=== PATIENT | female | born 1945 | race Caucasian/White ===

== ENCOUNTER 2019-04-25 19:10 | Emergency (ER) | payer MEDICARE, BC ==
[2019-04-25 19:17] VITALS: BMI 25.7
[2019-04-25] MEDS ORDERED: CARDURA1 MG (19:18)
[2019-04-25] MEDS ORDERED: NIACIN250 M1 PO (19:19)
[2019-04-25] MEDS ORDERED: CITRACAL + D E1 EACH PO (19:19)
[2019-04-25] MEDS ORDERED: FOLIC ACID1 MG PO (19:19)
[2019-04-25] MEDS ORDERED: KRILL OIL 1,001 EAC1 (19:19)
[2019-04-25] MEDS ORDERED: BAYER CHEWABLE81 MG PO (19:19)
[2019-04-25] MEDS ORDERED: VITAMIN D10000 UNI1 PO (19:20)
[2019-04-25 21:18] LABS: BASOPHILS 0.1 % (0-2); EOSINOPHILS 0.8 % (0-7); HEMATOCRIT 30.9 % (36.0-48.0); HEMOGLOBIN 10.6 g/dL (12-16); IMMATURE GRANULOCYTES 0.3 % (0-5); LYMPHOCYTES 8.1 % (15-50); MCH 32.4 pg (26.0-34.0); MCHC 34.3 g/dL (31.0-37.0); MCV 94.5 fL (80.0-100.0); NEUTROPHILS 80.7 % (40-80); PLATELET COUNT 225 10x3/uL (130-400); RBC 3.27 10x6/uL (4.00-5.40); RDW 12.1 % (11.5-14.5); WBC 10.9 10x3/uL (4.8-10.8)
[2019-04-25 21:28] LABS: APTT 37.4 SECONDS (22.8-39.4); INR 1.07 (0.85-1.17); PROTIME 13.4 SECONDS (11.6-15.0)
[2019-04-25 21:31] LABS: ALBUMIN 3.1 g/dL (3.4-5.0); ALKALINE PHOSPHATASE 124 U/L (46-116); ALT (SGPT) 18 U/L (10-68); BILIRUBIN - TOTAL 0.46 mg/dL (0.2-1.3); CALC OSMOLALITY 261 mosm/kg (275-300); CALCIUM 10.1 mg/dL (8.5-10.1); CHLORIDE - SERUM 94 mmol/L (98-107); CREATININE - SERUM 0.9 mg/dL (0.6-1.3); GLUCOSE 113 mg/dL (74-106); POTASSIUM - SERUM 3.9 mmol/L (3.5-5.1); PROTEIN - SERUM 7.5 g/dL (6.4-8.2); SODIUM 130 mmol/L (136-145); UREA NITROGEN 12 mg/dL (7-18); eGFR NON AFRICAN AMERICAN 65 mL/min (90-120)
[2019-04-25 21:43] LABS: CKMB 0.3 U/L (0.0-3.6); CREATINE KINASE 51 UL (21-215); MAGNESIUM - SERUM 2.1 mg/dL (1.8-2.4); TROPONIN-I < 0.017 ng/mL (0.000-0.060)
[2019-04-25] MEDS ORDERED: TESSALON PERLE100 MG PO (23:45)
[2019-04-25] MEDS ORDERED: ACETAMINOPHEN500 M1 PO (23:56)
[2019-04-25] MEDS ORDERED: IBUPROFEN800 MG PO (23:56)
[2019-04-25] MEDS ORDERED: CYCLOBENZAPRINE10 MG PO (23:56)
[2019-04-26 00:01] VITALS: BP 135/69
== END 2019-04-26 01:27 | disposition home or self-care (01) ==
LOC: D.ER 19:10
PROVIDERS: Family Medicine
DX: M79.18 Myalgia, other site (principal); M25.512 Pain in left shoulder